=== PATIENT | male | born 1980 | race Caucasian/White ===

== ENCOUNTER 2020-06-12 09:11 | Outpatient (CLI) | payer OTHER ==
[~2020-06-12 09:11] MED LIST: CIPRO500 MG PO; ZANTAC300 MG PO
== END 2020-06-12 09:27 | disposition home or self-care (01) ==
LOC: LAB 09:11
PROVIDERS: ATTEND Emergency Medicine Pediatric Emergency Medicine
DX: B01.9 Varicella without complication (principal)

== ENCOUNTER 2020-08-20 08:00 | Outpatient (CLI) | payer OTHER | END 2020-08-20 18:50 | disposition home or self-care (01) | LOC: PPH VACUNA 08:00 | DX: Z23 Encounter for immunization (principal) ==

== ENCOUNTER 2020-09-10 08:32 | Outpatient (CLI) | payer OTHER | END 2020-09-10 13:55 | disposition home or self-care (01) | LOC: LAB 08:32 | DX: R05 Cough (principal); Z20.828 Contact with and (suspected) exposure to other viral communicable diseases ==

== ENCOUNTER 2020-11-28 13:51 | Outpatient (CLI) | payer OTHER | END 2020-11-28 14:47 | disposition home or self-care (01) | LOC: OFIC 805 13:51 | PROVIDERS: ATTEND Otolaryngology Otology & Neurotology | DX: H93.13 Tinnitus, bilateral (principal); H61.21 Impacted cerumen, right ear ==

== ENCOUNTER 2022-02-27 09:52 | Outpatient (CLI) | payer OTHER | END 2022-02-27 10:10 | disposition home or self-care (01) | LOC: MRI 09:52 | PROVIDERS: ATTEND Physical Medicine & Rehabilitation | DX: M25.551 Pain in right hip (principal); M25.561 Pain in right knee | CPT/HCPCS: 73721 ==